=== PATIENT | male | born 1995 | race Caucasian/White ===

== ENCOUNTER 2017-06-17 16:42 | Emergency (ER) | payer BC ==
[2017-06-17 16:49] VITALS: RESP 18; TEMP 98.8; O2SAT 96
--- NOTE | 2017-06-17 17:05 | EDPHY ---
H & P Time Seen by Provider: 06/17/17 16:59 HPI/ROS: CHIEF COMPLAINT: Finger laceration HISTORY OF PRESENT ILLNESS: 22-year-old [id number] male with up-to- date tetanus arrives via private vehicle complaining of accidental laceration to his left 4th digit palmar aspect when he grabbed a broken glass. Denies foreign body sensation. Denies paresthesia. PHYSICAL EXAM (Prior to examination, patient consented to physical exam, hands were washed and my usual and customary physical exam procedures followed) 1) GENERAL: Well-developed, well-nourished, alert and oriented. Appears to be in no acute distress. 2) HEAD: Normocephalic 3) HEENT: sclera anicteric 4) LUNGS: Breathing comfortably. 5) SKIN: left 4th digit distal phalanx palmar aspect 2 cm flap laceration 6) MUSCULOSKELETAL: flexor and extensor function independently tested at the [facility] PIP DIP had no deficits appreciated on exam 7) NEUROLOGIC: Full sensation two-point discrimination intact distally Smoking Status: Never smoked Constitutional: Initial Vital Signs Temperature (C) 37.1 C 06/17/17 16:46 Heart Rate 94 06/17/17 16:46 Respiratory Rate 18 06/17/17 16:46 Blood Pressure 117/79 06/17/17 16:46 O2 Sat (%) 96 06/17/17 16:46 O2 Delivery Mode Room Air Allergies/Adverse Reactions: No Known Allergies Allergy (Unverified 06/17/17 16:49) Home Medications: Medication Instructions Recorded NK [No Known Home Meds] 06/17/17 MDM/Departure - MDM Procedures: Procedure: Laceration repair. I explained the indications, risks and benefits for both laceration repair and anesthetic administration. Verbal consent was obtained from the patient . The laceration on the left 4th digit was anesthetized using 0.5% bupivicaine without epinephrine digital nerve block. After anesthetic administered the patient was observed for a period of time and had no apparent adverse effects. The wound was cleaned, prepped, draped in normal sterile fashion and explored to its base. No foreign body seen, no foreign bodies palpated. There were no deep structures involved. No tendon injury was identified. The wound was repaired with 4 simple interrupted 5 O Ethilon sutures. The wound repair was simple. The procedure was performed by myself. Patient has been informed that scarring will occur, although efforts have been made to minimize this. ED Course/Re-evaluation: I recommended x-ray to evaluate for radiopaque foreign body. The patient declines this. He has been informed of the risks of declining this. - Depart Disposition: Home, Routine, Self-Care Clinical Impression: Finger laceration Qualifiers: Encounter type: initial encounter Finger: ring finger Damage to nail status: without damage Foreign body presence: unspecified Laterality: left Qualified Code(s): S61.215A - Laceration without foreign body of left ring finger without damage to nail, initial encounter Condition: Good Instructions: Care For Your Stitches (ED), Laceration (ED) Additional Instructions: Return to the ER if you develop redness, swelling, discharge, warmth to the wound, red streaks going up your arm, or any other symptoms that concern you. Referrals: Return, to the ER in 10 days for suture removal [Other] - 06/27/17
[2017-06-17 18:11] VITALS: BP 136/79; PULSE 82
== END 2017-06-17 18:10 | disposition home or self-care (01) ==
PROC: 0HQGXZZ Repair Left Hand Skin, External Approach (ICD-10-PCS; principal; 2017-06-17)
DX: S61.215A Laceration without foreign body of left ring finger without damage to nail, initial encounter (principal); W25.XXXA Contact with sharp glass, initial encounter; Y99.8 Other external cause status